=== PATIENT | male | born 2000 | race African-American/Black ===

== ENCOUNTER 2023-06-03 19:37 | Emergency (ER) | payer OTHER, SELFPAY ==
--- NOTE | 2023-06-03 20:19 | ER ---
Nurse's Notes [facility] Name: Jefry Cao Age: 22 yrs Sex: Male : 2000 Arrival Date: 06/03/2023 Time: 19:37 Bed 11 Private MD: Diagnosis: Rash and other nonspecific skin eruption Presentation: 06/03 19:43 Chief complaint: Patient states: [place] felt like burning to belly, nj1 back and left groin. Redness noted to abdomen and back. Coronavirus screen: Vaccine status: Patient reports being unvaccinated. Ebola Screen: Patient denies travel to an Ebola-affected area in the 21 days before illness onset. Initial Sepsis Screen: Does the patient meet any 2 criteria? HR > 90 bpm. No. Patient's initial sepsis screen is negative. Does the patient have a suspected source of infection? No. Patient's initial sepsis screen is negative. Risk Assessment: Do you want to hurt yourself or someone else? Patient reports no desire to harm self or others. Onset of symptoms was June 03, 2023. 19:43 Method Of Arrival: Ambulatory [facility] 19:43 Acuity: PAULINE 3 nj1 Historical: - Allergies: 19:47 No Known Allergies; nj1 - PMHx: 19:47 None; nj1 - PSHx: 19:47 Knee, left; nj1 - Immunization history:: Client reports having NOT received the Covid vaccine. - Social history:: Smoking status: Patient denies any tobacco usage or history of. Screenin:30 [facility] ED Fall Risk Assessment (Adult) History of falling in the last 3 months, pf1 including since admission No falls in past 3 months (0 pts) Confusion or Disorientation No (0 pts) Intoxicated or Sedated No (0 pts) Impaired Gait No (0 pts) Mobility Assist Device Used No (0 pt) Altered Elimination No (0 pt) Score/Fall Risk Level 0 - 2 = Low Risk Oriented to surroundings, Maintained a safe environment, Educated pt \T\ family on fall prevention, incl call for assistance when getting out of bed, Assessed \T\ reinforced patient's understanding of fall precautions, Provided non-skid footwear, Hourly rounding (assess needs \T\ fall precautionary measures) done, Used ambulatory aids as needed (educated on \T\ assisted with), Used gait belt as appropriate. 20:30 Abuse screen: Denies threats or abuse. Nutritional screening: No deficits noted. pf1 Tuberculosis screening: No symptoms or risk factors identified. Assessment: 20:26 General: Appears in no apparent distress. uncomfortable, well groomed, well developed, pf1 Behavior is calm, cooperative, appropriate for age, quiet. 20:26 Pain: Complains of pain in abdomen. Neuro: No deficits noted. Level of Consciousness is pf1 awake, alert, obeys commands, Oriented to person, place, time, situation. Cardiovascular: No deficits noted. Capillary refill < 3 seconds Patient's skin is warm and dry. Respiratory: No deficits noted. Airway is patent Respiratory effort is even, unlabored, Respiratory pattern is regular, symmetrical. GI: No deficits noted. No signs and/or symptoms were reported involving the gastrointestinal system. : No deficits noted. No signs and/or symptoms were reported regarding the genitourinary system. EENT: No deficits noted. No signs and/or symptoms were reported regarding the EENT system. Derm: Rash noted that is red, abdominal region Reports. Vital Signs: 19:43 BP 132 / 86; Pulse 105; Resp 18; Temp 99(O); Pulse Ox 100% ; Weight 61.23 kg; Height 5 nj1 ft. 10 in. ; Pain 7/10; 21:00 BP 123 / 79; Pulse 92; Resp 16; Pulse Ox 100% on R/A; pf1 19:43 Body Mass Index 19.37 (61.23 kg, 177.8 cm) nj1 19:43 Pain Scale: Adult [facility] ED Course: 19:40 Patient arrived in ED. kj1 19:42 Margarita Fernando FNP-C is PHCP. snw 19:42 Sury Bocanegra MD is Attending Physician. snw 19:47 Triage completed. nj1 19:47 Arm band placed on right wrist. nj1 20:30 Patient has correct armband on for positive identification. Placed in gown. Bed in low pf1 position. Call light in reach. 20:30 No provider procedures requiring assistance completed. pf1 20:30 Patient did not have IV access during this emergency room visit. pf1 21:21 Provided Education on: medication administration. pf1 Administered Medications: 21:05 Drug: ZyrTEC - Cetirizine PO 10 mg Route: PO; pf1 21:21 Follow up: Response: No adverse reaction; Marked relief of symptoms pf1 21:05 Drug: Famotidine PO 20 mg Route: PO; pf1 21:21 Follow up: Response: No adverse reaction; Marked relief of symptoms; Pain is decreased pf1 21:05 Drug: Ibuprofen PO 600 mg Route: PO; pf1 21:21 Follow up: Response: No adverse reaction; Marked relief of symptoms pf1 Medication: 21:00 VIS not applicable for this client. pf1 Outcome: 20:19 Discharge ordered by MD. marin 21:20 Discharged to home ambulatory. pf1 21:20 Condition: improved 21:20 Discharge instructions given to patient, Instructed on discharge instructions, follow up and referral plans. Demonstrated understanding of instructions, follow-up care, medications, Prescriptions given X 3. 21:21 Patient left the ED. pf1 Signatures: Margarita Fernando, AUTO BUMPER STRAIGHTENER-C AUTO BUMPER STRAIGHTENER-Csnw Caroline Maya kj1 Sarah Garcia RN RN pf1 Jody Dan RN RN nj1
--- NOTE | 2023-06-03 20:19 | EDPHYS ---
Physician Documentation [facility] Name: Jefry Cao Age: 22 yrs Sex: Male : 2000 Arrival Date: 06/03/2023 Time: 19:37 Bed 11 Private MD: ED Physician Sury Bocanegra HPI: 06/03 20:17 This 22 yrs old Black Male presents to ER via Ambulatory with complaints of STUNG BY snw STINGRAY. 20:17 Onset: The symptoms/episode began/occurred suddenly. Associated signs and symptoms: snw Pertinent positives: burning sensation to abdomen with radiation around left waist. The patient has not experienced similar symptoms in the past. It is unknown whether or not the patient has recently seen a physician. Historical: - Allergies: 19:47 No Known Allergies; nj1 - PMHx: 19:47 None; nj1 - PSHx: 19:47 Knee, left; nj1 - Immunization history:: Client reports having NOT received the Covid vaccine. - Social history:: Smoking status: Patient denies any tobacco usage or history of. ROS: 20:16 Constitutional: Negative for fever, chills, and weight loss, Eyes: Negative for injury, snw pain, redness, and discharge, ENT: Negative for injury, pain, and discharge, Neck: Negative for injury, pain, and swelling, Cardiovascular: Negative for chest pain, palpitations, and edema, Respiratory: Negative for shortness of breath, cough, wheezing, and pleuritic chest pain, Abdomen/GI: Negative for abdominal pain, nausea, vomiting, diarrhea, and constipation, Back: Negative for injury and pain, : Negative for injury, bleeding, discharge, and swelling, MS/Extremity: Negative for injury and deformity, Neuro: Negative for headache, weakness, numbness, tingling, and seizure, Psych: Negative for depression, anxiety, suicide ideation, homicidal ideation, and hallucinations. 20:16 Skin: Positive for erythema, rash, of the abdomen. Exam: 20:15 Constitutional: This is a well developed, well nourished patient who is awake, alert, snw and in no acute distress. Head/Face: Normocephalic, atraumatic. Eyes: Pupils equal round and reactive to light, extra-ocular motions intact. Lids and lashes normal. Conjunctiva and sclera are non-icteric and not injected. Cornea within normal limits. Periorbital areas with no swelling, redness, or edema. ENT: Nares patent. No nasal discharge, no septal abnormalities noted. Tympanic membranes are normal and external auditory canals are clear. Oropharynx with no redness, swelling, or masses, exudates, or evidence of obstruction, uvula midline. Mucous membranes moist. Neck: Trachea midline, no thyromegaly or masses palpated, and no cervical lymphadenopathy. Supple, full range of motion without nuchal rigidity, or vertebral point tenderness. No Meningismus. Chest/axilla: Normal chest wall appearance and motion. Nontender with no deformity. No lesions are appreciated. Cardiovascular: Regular rate and rhythm with a normal S1 and S2. No gallops, murmurs, or rubs. Normal PMI, no JVD. No pulse deficits. Respiratory: Lungs have equal breath sounds bilaterally, clear to auscultation and percussion. No rales, rhonchi or wheezes noted. No increased work of breathing, no retractions or nasal flaring. Abdomen/GI: Soft, non-tender, with normal bowel sounds. No distension or tympany. No guarding or rebound. No evidence of tenderness throughout. Back: No spinal tenderness. No costovertebral tenderness. Full range of motion. MS/ Extremity: Pulses equal, no cyanosis. Neurovascular intact. Full, normal range of motion. Neuro: Awake and alert, GCS 15, oriented to person, place, time, and situation. Cranial nerves II-XII grossly intact. Motor strength 5/5 in all extremities. Sensory grossly intact. Cerebellar exam normal. Normal gait. Psych: Awake, alert, with orientation to person, place and time. Behavior, mood, and affect are within normal limits. 20:15 Skin: Appearance: normal except for affected area, injury, area of induration surrounded by erythema to abdomen. Vital Signs: 19:43 BP 132 / 86; Pulse 105; Resp 18; Temp 99(O); Pulse Ox 100% ; Weight 61.23 kg; Height 5 nj1 ft. 10 in. ; Pain 7/10; 21:00 BP 123 / 79; Pulse 92; Resp 16; Pulse Ox 100% on R/A; pf1 19:43 Body Mass Index 19.37 (61.23 kg, 177.8 cm) nj1 19:43 Pain Scale: Adult nj1 MDM: 19:49 Patient medically screened. snw 20:17 Differential diagnosis: marine envenomation, jelly fish sting. Data reviewed: vital snw signs, nurses notes. Counseling: I had a detailed discussion with the patient and/or guardian regarding the historical points, exam findings, and any diagnostic results supporting the discharge/admit diagnosis, the need for outpatient follow up, for definitive care, to return to the emergency department if symptoms worsen or persist or if there are any questions or concerns that arise at home. Special discussion: Based on the history and exam findings, there is no indication for further emergent testing or inpatient evaluation. I discussed with the patient/guardian the need to see the primary care provider for further evaluation of the symptoms. Administered Medications: 21:05 Drug: ZyrTEC - Cetirizine PO 10 mg Route: PO; pf1 21:21 Follow up: Response: No adverse reaction; Marked relief of symptoms pf1 21:05 Drug: Famotidine PO 20 mg Route: PO; pf1 21:21 Follow up: Response: No adverse reaction; Marked relief of symptoms; Pain is decreased pf1 21:05 Drug: Ibuprofen PO 600 mg Route: PO; pf1 21:21 Follow up: Response: No adverse reaction; Marked relief of symptoms pf1 Disposition: 06/04 06:41 STAFF ATTESTATION STATEMENT: I was immediately available onsite in the emergency sd2 department for consultation in the care of this patient. I did not see or examine this patient. Sury Bocanegra MD. Disposition Summary: 06/03/23 20:19 Discharge Ordered Location: Home snw Condition: Stable snw Diagnosis - Rash and other nonspecific skin eruption snw Followup: snw - With: Emergency Department - When: As needed - Reason: Worsening of condition Followup: snw - With: Private Physician - When: 5 - 6 days - Reason: Recheck today's complaints, Continuance of care, Re-evaluation by your physician Discharge Instructions: - Discharge Summary Sheet snw - Marine Life Injury snw - Rash, Adult snw Forms: - Medication Reconciliation Form snw - Thank You Letter snw - Antibiotic Education snw - Prescription Opioid Use snw - Patient Portal Instructions snw - Leadership Thank You Letter snw Prescriptions: - Mobic 7.5 mg Oral Tablet - take 1 tablet by ORAL route once daily take with food; 20 tablet; Refills: 0, snw Product Selection Permitted - Zyrtec 10 mg Oral Tablet - take 1 tablet by ORAL route once daily As needed; 20 tablet; Refills: 0, snw Product Selection Permitted - Pepcid 20 mg Oral Tablet - take 1 tablet by ORAL route once daily; 20 tablet; Refills: 0, Product snw Selection Permitted Signatures: Margarita Fernando, COMMERCIAL PRODUCTION EDITOR-C COMMERCIAL PRODUCTION EDITOR-Csnw Sury Bocanegra MD MD sd2 Sarah Garcia RN RN pf1 Jody Dan RN RN nj1
[2023-06-03] MEDS ORDERED: CETIRIZINE HCL 5 MG TABLET ONE (20:54)
[2023-06-03] MEDS ORDERED: IBUPROFEN 200 MG TAB PO ONE (20:54)
[2023-06-03] MEDS ORDERED: FAMOTIDINE 20 MG TAB ONE (20:55)
[2023-06-03] MEDS ORDERED: IBUPROFEN 400 MG TAB ONE (20:55)
[2023-06-03 21:55] VITALS: BP 132/86; TEMP 99; O2SAT 100
== END 2023-06-03 21:21 | disposition home or self-care (01) ==
LOC: ER 19:37
DX: R21 Rash and other nonspecific skin eruption (principal); T63.514A Toxic effect of contact with stingray, undetermined, initial encounter; Y92.832 Beach as the place of occurrence of the external cause
CPT/HCPCS: 99283